=== PATIENT | female | born 1980 | race Caucasian/White ===

== ENCOUNTER 2021-02-09 09:09 | Emergency (ER) | payer OTHER, SELFPAY ==
--- NOTE | ~2021-02-09 | CT_ITS ---
EXAMINATION: CT LUMBAR SPINE WITHOUT CONTRAST CLINICAL INFORMATION: Work related injury. Back pain. COMPARISON: None TECHNIQUE: Axial images through the lumbar spine without contrast. Sagittal and coronal reconstructions on the technologist workstation were performed. This CT examination was performed using dose optimization techniques as appropriate, variously including the following: *Automated exposure control *Adjustment of mA and/or kV according to patient size (this includes techniques or standardized protocols for targeted exams where dose is matched to indication/reason for exam; i.e. extremities or head) *Use of iterative reconstruction technique DLP; 438 mGy-cm FINDINGS: There is curvature of the lumbar spine to the left. Bone alignment is otherwise normal. No fracture or dislocation is seen. There is a small 5 mm parotid lesion in the right sacrum probably representing a bone island. Spinal levels: T12-L1: Normal. L1-L2: Normal. L2-L3: Normal. L3-L4: Normal. L4-L5: There is diffuse disc bulge. No disc herniation is seen. Final canal, lateral recesses and neural foramen are patent. L5-S1: Normal. Paraspinal soft tissues are normal. CT/CT lumbar spine wo con IMPRESSION: Curvature of the lumbar spine to the left. No fracture or dislocation. Diffuse disc bulge at L4-L5.
[2021-02-09 09:17] VITALS: BP 126/79; BP 130/90; PULSE 79; PULSE 82; RESP 16; TEMP 37; O2SAT 100; O2SAT 99; BMI 33.6
[2021-02-09] MEDS: NaPROXEN 500 MG TABLET PO (09:38)
[2021-02-09] MEDS: diazePAM 5 MG TABLET PO (09:39)
[2021-02-09] MEDS: Lidocaine 4 % Patch ADH..PATCH 1 PATCH TRANSDERMA (10:14)
--- NOTE | 2021-02-09 11:14 | ED.BACK ---
HPI - Back Pain/Injury General Chief Complaint: Back Pain/Injury <FARRAH Sun - Last Filed: 02/09/21 11:46> Stated Complaint: LOW BACK PAIN S/P FALL THIS AM <FARRAH Sun - Last Filed: 02/09/21 11:46> Time Seen by Provider: 02/09/21 09:18 <FARRAH Sun - Last Filed: 02/09/21 11:46> Source: patient <FARRAH Sun - Last Filed: 02/09/21 11:46> Mode of arrival: ambulatory <FARRAH Sun - Last Filed: 02/09/21 11:46> Limitations: no limitations <FARRAH Sun Last Filed: 02/09/21 11:46> History of Present Illness HPI Narrative: 40-year-old female with no significant past medical history although has had prior intermittent back pains in the past presenting to the ED with complaints of acute lower back pain 8/10 worse with movement that occurred prior to arrival while she was at work. She reports that this morning she was kneeling reaching out to stop a student from running and tweaked her back. Since then has been having pain. Denies any other injuries complaints or concerns at this time. <FARRAH Sun - Last Filed: 02/09/21 11:46> MD elicited complaint: back pain and back injury <FARRAH Sun - Last Filed: 02/09/21 11:46> Onset (ago): minute(s) (Prior to arrival) <FARRAH Sun - Last Filed: 02/09/21 11:46> Timing: constant <FARRAH Sun - Last Filed: 02/09/21 11:46> Severity: severe <FARRAH Sun - Last Filed: 02/09/21 11:46> Pain scale (0-10): 10 <FARRAH Sun - Last Filed: 02/09/21 11:46> Similar Symptoms Previously: Yes (Not as bad as today per patient) <FARRAH Sun Last Filed: 02/09/21 11:46> Quality: sharp, stabbing, aching, spasming and throbbing <FARRAH Sun - Last Filed: 02/09/21 11:46> Location: lumbar spine <FARRAH Sun Last Filed: 02/09/21 11:46> Radiation: none <FARRAH Sun Last Filed: 02/09/21 11:46> Exacerbating factors: movement, supine positioning, sitting upright, walking and lifting <FARRAH Sun Last Filed: 02/09/21 11:46> Relieving factors: none <FARRAH Sun Last Filed: 02/09/21 11:46> Context: turning/twisting <FARRAH Sun Last Filed: 02/09/21 11:46> Associated symptoms: denies other symptoms <FARRAH Sun Last Filed: 02/09/21 11:46> Work related injury: Yes <FARRAH Sun Last Filed: 02/09/21 11:46> Related Data Home Medications: Previous Rx's Medication Instructions Recorded acetaminophen [Tylenol Extra 1,000 mg PO QID PRN #14 tab 02/09/21 Strength] diazepam [Valium] 5 mg PO TID PRN #14 tab 02/09/21 lidocaine HCl [Aspercreme 1 appl TOPICAL BID PRN #120 g 02/09/21 (lidocaine HCl)] naproxen 500 mg PO BID PRN #10 tab 02/09/21 oxycodone 5 mg PO BID PRN #10 tab 02/09/21 <FARRAH Sun Last Filed: 02/09/21 11:46> Allergies/Adverse Reactions: Allergies Allergy/AdvReac Type Severity Reaction Status Date / Time erythromycin base Allergy Nausea and Verified 02/09/21 09:16 Vomiting <FARRAH Sun Last Filed: 02/09/21 11:46> Review of Systems Review of Systems: Constitutional : No trauma, No Weight loss, No Fever, No Chills, ENT/Mouth : No Hearing loss, No Ear Pain, No Nasal Congestion, No Sinus Pain, No Hoarseness, No sore throat, No Rhinorrhea, No Swallowing Difficulty Cardiovascular : No Chest Pain, No SOB Respiratory : No Cough, No Dyspnea Gastrointestinal : No Nausea, No Vomiting, No Diarrhea, No abdominal Pain, No Hematochezia, No Melena Genitourinary : No Dysuria, No Urinary Frequency, No Hematuria, No Urinary or Bowel Incontinence/retention Musculoskeletal : + Back pain, No neck pain, No joint stiffness, No joint swelling Skin : No Skin Lesions, No rash or signs of infection Neuro : No Weakness, No radiation, No Numbness, No Paresthesias, No headache, no loss of bowel or bladder incontinence, no saddle anesthesia, Focal weakness, No radiation Denies history of IV drug usage. <FARRAH Sun - Last Filed: 02/09/21 11:46> Yes all other systems are reviewed and are negative <FARRAH Sun - Last Filed: 02/09/21 11:46> [facility] Past Medical History Attestation statement: The following information was validated with the patient. <FARRAH Sun - Last Filed: 02/09/21 11:46> Surgical History: Surgical History [place] teeth extracted <FARRAH Sun - Last Filed: 02/09/21 11:46> Social History Social History: Social History Advance Directives: No Advance Directives Information Provided: No Patient : No <FARRAH Sun - Last Filed: 02/09/21 11:46> Physical Exam Vital Signs: Vital Signs: Last Vital Signs Temp 98.6 F 02/09/21 09:17 Pulse 79 02/09/21 09:17 Resp 16 02/09/21 09:17 BP 126/79 02/09/21 09:17 Pulse Ox 100 02/09/21 09:17 Body Mass Index 33.6 vital signs have been reviewed as normal and appeared to be correct. Blood pressure normal. Heart rate normal. Respiration rate normal. Temperature normal. Oxygen saturation normal. <FARRAH Sun - Last Filed: 02/09/21 11:46> Vital Signs: Last Vital Signs Temp 98.6 F 02/09/21 09:17 Pulse 79 02/09/21 09:17 Resp 16 02/09/21 09:17 BP 126/79 02/09/21 09:17 Pulse Ox 100 02/09/21 09:17 Body Mass Index 33.6 <Dean Eduardo MD - Last Filed: 03/13/21 16:13> Appearance: Alert. Oriented X3. No acute distress. Head: Normal external exam. Normocephalic. Atraumatic. No Gary signs noted. No raccoon eyes noted Eyes: PERRLA. EOMI. Conjunctiva and sclera normal. Eyelids normal. ENT: EAC normal. TM's Normal. Pharynx normal. Uvula midline. Moist mucous membranes. No trismus noted. No drooling noted. No muffled voice noted. Neck: Normal inspection. Neck supple. FROM. No adenopathy. Thyroid Normal. No meningeal signs. No neck mass noted. CVS: Normal heart rate and rhythm. Heart sound normal. No murmurs noted. Pulses normal throughout. Respiratory: No respiratory distress. Painless inspiration. Breath sounds normal. No wheezes/rales/rhonchi noted. Chest nontender. No accessory muscle usage noted or decreased air movement noted. Abdomen: Soft and nontender. Bowel sounds normal in all 4 quadrants. No distention noted. No organomegaly noted. No visible injury noted. Back: No CVA tenderness. Full range of motion noted. No obvious deformities, or edema. Mild para-spinal muscular tenderness from lumbar region to coccyx. Full ROM in back and lower extremities. 5/5 strength hip extension/flexion, abduction, adduction. Mild Lumbar pain with hip flexion against resistance. Straight leg raise test negative on right; Straight leg raise test negative on left; Reflexes normal ankle and knee bilaterally; EHL motor strength normal bilaterally. No rashes/lesion/induration/fluctuance or signs infection noted. Skin: Skin warm and dry. Normal skin color. Normal skin turgor. No rashes/lesions/lacerations noted. Extremities: No lower extremity edema. Extremities exhibit normal range of motion. Extremities nontender. Neuro: Oriented X 3. No motor deficit. No sensory deficit. Reflexes normal. Patient has a normal steady gait. <FARRAH Sun - Last Filed: 02/09/21 11:46> Course Course Course Narrative: Pt c likely muscular pain, but could be herniated disc. Neuro exam shows no deficits. Not c/w AAA/epidural abscess/dissection.No high risk Hx (Incont, fever, immunosupp, recent surgery/LP, coag, signif trauma, wt loss, puls mass, hx/o Ca, TB, or IVDU) to warrant MRI today. Not c/w Pyelo/UTI/kidney stone/spinal fx. Not cauda equina syndrome. CT scan of abdomen and pelvis revealed curvature lumbar spine to the left. No fracture dislocation. Diffuse disc bulge at L4-L5. No other acute processes. Patient was given naproxen/Valium and Lidoderm patch and she reports mild symptomatic relief. Will DC home with symptomatic treatment and instructions return if any new or worsening symptoms to follow up with primary care provider for referral to therapy. Patient understands agrees with this plan. <FARRAH Sun - Last Filed: 02/09/21 11:46> I have reviewed the chart <Dean Eduardo MD - Last Filed: 03/13/21 16:13> MDM - Back Pain/Injury Medical Records Attestation: I reviewed the patient's medical records. <FARRAH Sun - Last Filed: 02/09/21 11:46> Imaging Data CT scan of lumbar spine: Attestation: I personally reviewed and interpreted this imaging study as follows: <FARRAH Sun - Last Filed: 02/09/21 11:46> Radiologist's impression: FINDINGS: There is curvature of the lumbar spine to the left. Bone alignment is otherwise normal. No fracture or dislocation is seen. There is a small 5 mm parotid lesion in the right sacrum probably representing a bone island. Spinal levels: T12-L1: Normal. L1-L2: Normal. L2-L3: Normal. L3-L4: Normal. L4-L5: There is diffuse disc bulge. No disc herniation is seen. Final canal, lateral recesses and neural foramen are patent. L5-S1: Normal. Paraspinal soft tissues are normal. CT/CT lumbar spine wo con IMPRESSION: Curvature of the lumbar spine to the left. No fracture or dislocation. Diffuse disc bulge at L4-L5. <FARRAH Sun - Last Filed: 02/09/21 11:46> Discharge Plan Discharge Clinical Impression: Strain of lumbar region, Bulging lumbar disc <FARRAH Sun - Last Filed: 02/09/21 11:46> Patient Disposition: Home, Self-Care <FARRAH Sun - Last Filed: 02/09/21 11:46> Instructions: Lumbar Radiculopathy (ED), Back Pain (ED) <FARRAH Sun - Last Filed: 02/09/21 11:46> Prescriptions: New acetaminophen [Tylenol Extra Strength] 500 mg tablet 1,000 mg PO QID PRN (Reason: fever or pain) Qty: 14 RF: 0 naproxen 500 mg tablet 500 mg PO BID PRN (Reason: pain) Qty: 10 RF: 0 diazepam [Valium] 5 mg tablet 5 mg PO TID PRN (Reason: muscle spasm) Qty: 14 RF: 0 oxycodone 5 mg tablet 5 mg PO BID PRN (Reason: pain) Qty: 10 RF: 0 lidocaine HCl [Aspercreme (lidocaine HCl)] 4 % cream 1 appl topical BID PRN (Reason: pain) Qty: 120 RF: 0 <FARRAH Sun - Last Filed: 02/09/21 11:46> Referrals: [facility] [Provider Group] - 2 days Kirsty Andrade MD [Primary Care Provider] - 2 days <FARRAH Sun - Last Filed: 02/09/21 11:46> Stand Alone Forms: Work/School Release <FARRAH Sun - Last Filed: 02/09/21 11:46> Interventions: ED Discharge Assessment Last Done: 02/09/21 11:52 <FARRAH Sun - Last Filed: 02/09/21 11:46> Discharge Date/Time: 02/09/21 11:53 <FARRAH Sun - Last Filed: 02/09/21 11:46> Print Language: Montserratian <FARRAH Sun - Last Filed: 02/09/21 11:46>
== END 2021-02-09 11:53 | disposition home or self-care (01) ==
PROVIDERS: Emergency Provider Emergency Medicine; PCP Internal Medicine
DX: S39.012A Strain of muscle, fascia and tendon of lower back, initial encounter (principal); M51.26 Other intervertebral disc displacement, lumbar region; X58.XXXA Exposure to other specified factors, initial encounter; Y93.9 Activity, unspecified; Y92.9 Unspecified place or not applicable; Y99.9 Unspecified external cause status
CPT/HCPCS: 72131; 99284